=== PATIENT | female | born 1955 | race Caucasian/White ===

== ENCOUNTER 2018-04-11 16:41 | Emergency (ER) | payer OTHER, MEDICARE ==
[~2018-04-11] VITALS: Ht 167.6 cm; Wt 81.7 kg
[~2018-04-11 16:41] MED LIST: AMLO5 PO; ASPI81CH PO; DEXL60CA3 PO; ESTR1; ESTR2 PO; FAMO20 PO; LEVSOD25; Lisinopril2.5 MG; NEXIUM 24HR20 M1 PO; OMEP20ER PO; SERT25 PO
[2018-04-11 17:58] LABS: BASOPHILS ABSOLUTE AUTO 0.05 K/mm3 (0.00-0.23); BASOPHILS PERCENT AUTO 1 % (0-2); EOSINOPHILS ABSOLUTE AUTO 0.24 K/mm3 (0.00-0.68); EOSINOPHILS PERCENT AUTO 4 % (0-6); Hematocrit 40.5 % (33.0-51.0); Hemoglobin 13.3 g/dL (11.5-16.0); IMMATURE GRAN ABSOLUTE AUTO 0.02 K/mm3 (0.00-0.10); IMMATURE GRAN PERCENT AUTO 0 % (0-1); LYMPHOCYTES ABSOLUTE AUTO 2.15 K/mm3 (0.84-5.20); LYMPHOCYTES PERCENT AUTO 36 % (21-46); MONOCYTES ABSOLUTE AUTO 0.42 K/mm3 (0.16-1.47); MONOCYTES PERCENT AUTO 7 % (4-13); Mean Corpuscular HGB 29.4 pg (26.0-34.0); Mean Corpuscular HGB Conc 32.8 g/dL (31.5-36.5); Mean Corpuscular Volume 89 fL (80-100); Mean Platelet Volume 9.4 fL (9.1-12.4); NEUTROPHILS ABSOLUTE AUTO 3.08 K/mm3 (1.96-9.15); NEUTROPHILS PERCENT AUTO 52 % (41-73); Platelet Count 346 K/mm3 (150-400); RDW Coefficient Variation 13.2 % (11.7-14.2); RDW Standard Deviation 43.2 fL (35.1-46.3); Red Blood Cell Count 4.53 M/mm3 (3.80-5.20); White Blood Cell Count 5.96 K/mm3 (4.00-11.30)
[2018-04-11 18:14] LABS: Alanine Aminotransfer (ALT/SGP 33 U/L (12-78); Albumin, Blood 4.1 g/dL (3.4-5.0); Alk Phos 96 U/L (50-136); Anion Gap 10 mmol/L (6-16); Aspartate Aminotrans (AST/SGOT 26 U/L (12-37); Bilirubin, Total 0.3 mg/dL (0.1-1.0); Blood Urea Nitrogen 9 mg/dL (8-24); Bun/Creatinine Ratio 11.7 (12.0-20.0); CO2, Blood 29 mmol/L (21-32); Calcium, Blood 9.2 mg/dL (8.5-10.1); Chloride, Blood 103 mmol/L (98-108); Creatinine, Blood 0.77 mg/dL (0.40-1.00); Glomerular Filtration Rate >60 (60-); Glucose, Blood 112 mg/dL (70-99); Potassium, Blood 2.8 mmol/L (3.5-5.5); Sodium, Blood 142 mmol/L (136-145); Total Protein, Blood 8.1 g/dL (6.4-8.2); Troponin I <0.015 ng/mL (0.000-0.040)
[2018-04-11] MEDS ORDERED: POTCHL20ER PO (20:04)
== END 2018-04-11 20:22 | disposition home or self-care (01) ==
LOC: ER 16:41
PROVIDERS: Emergency Medicine
DX: S91.202A Unspecified open wound of left great toe with damage to nail, initial encounter (principal); E87.6 Hypokalemia; R07.9 Chest pain, unspecified; I10 Essential (primary) hypertension; F32.9 Major depressive disorder, single episode, unspecified; Z79.899 Other long term (current) drug therapy; Z79.82 Long term (current) use of aspirin; W22.8XXA Striking against or struck by other objects, initial encounter
CPT/HCPCS: 11730; 36415; 71046; 71260; 80053; 84484; 85025; 85379; 93005; 93010; 99284; Q9967

== ENCOUNTER 2021-04-02 12:52 | Emergency (ER) | payer OTHER, MEDICARE ==
[~2021-04-02] VITALS: Ht 167.6 cm; Wt 86.2 kg
[~2021-04-02 12:52] MED LIST changes: +POTCHL20ER PO
[2021-04-02 13:30] LABS: BASOPHILS ABSOLUTE AUTO 0.13 K/mm3 (0.00-0.23); BASOPHILS PERCENT AUTO 1 % (0-2); EOSINOPHILS ABSOLUTE AUTO 0.04 K/mm3 (0.00-0.68); EOSINOPHILS PERCENT AUTO 0 % (0-6); Hemoglobin 14.6 g/dL (11.5-16.0); IMMATURE GRAN ABSOLUTE AUTO 0.05 K/mm3 (0.00-0.10); IMMATURE GRAN PERCENT AUTO 0 % (0-1); LYMPHOCYTES ABSOLUTE AUTO 7.29 K/mm3 (0.84-5.20); LYMPHOCYTES PERCENT AUTO 65 % (21-46); MONOCYTES ABSOLUTE AUTO 0.56 K/mm3 (0.16-1.47); MONOCYTES PERCENT AUTO 5 % (4-13); Mean Corpuscular HGB 28.4 pg (26.0-34.0); Mean Corpuscular HGB Conc 32.4 g/dL (31.5-36.5); Mean Corpuscular Volume 88 fL (80-100); Mean Platelet Volume 9.5 fL (9.1-12.4); NEUTROPHILS ABSOLUTE AUTO 3.18 K/mm3 (1.96-9.15); NEUTROPHILS PERCENT AUTO 28 % (41-73); NRBC ABSOLUTE 0.02 K/mm3 (0.00-0.02); NRBC Auto 0.2 /100 WBC (0.0-0.2); Platelet Count 255 K/mm3 (150-400); RDW Coefficient Variation 14.5 % (11.7-14.2); RDW Standard Deviation 46.8 fL (35.1-46.3); Red Blood Cell Count 5.14 M/mm3 (3.80-5.20); White Blood Cell Count 11.25 K/mm3 (4.00-11.30)
[2021-04-02 13:51] LABS: Alanine Aminotransfer (ALT/SGP 61 U/L (12-78); Albumin, Blood 3.4 g/dL (3.4-5.0); Albumin/Globulin Ratio 0.8 (0.8-1.8); Alk Phos 156 U/L (50-136); Anion Gap 8 mmol/L (6-16); Aspartate Aminotrans (AST/SGOT 50 U/L (12-37); Bilirubin, Total 0.6 mg/dL (0.1-1.0); Blood Urea Nitrogen 15 mg/dL (8-24); Bun/Creatinine Ratio 16.9 (12.0-20.0); CO2, Blood 24 mmol/L (21-32); Calcium, Blood 8.9 mg/dL (8.5-10.1); Chloride, Blood 101 mmol/L (98-108); Creatinine, Blood 0.89 mg/dL (0.40-1.00); Globulin, Blood 4.1 g/dL (2.2-4.0); Glomerular Filtration Rate >60 (60-); Glucose, Blood 109 mg/dL (70-99); Potassium, Blood 4.1 mmol/L (3.5-5.5); Sodium, Blood 133 mmol/L (136-145); Total Protein, Blood 7.5 g/dL (6.4-8.2); Troponin I <0.015 ng/mL (0.000-0.040)
[2021-04-02 14:38] LABS: BASOPHILS ABSOLUTE MAN 0.11 K/mm3 (0.00-0.23); BASOPHILS PERCENT MAN 1 % (0-2); EOSINOPHILS PERCENT MAN 0 % (0-6); LYMPHOCYTES % ATYPICAL MANUAL 2 % (0-0); LYMPHOCYTES ABSOLUTE MAN 7.76 K/mm3 (0.84-5.20); LYMPHOCYTES PERCENT MAN 67 % (21-46); MONOCYTES ABSOLUTE MAN 0.22 K/mm3 (0.16-1.47); MONOCYTES PERCENT MAN 2 % (4-13); NEUTROPHILS ABSOLUTE MAN 3.15 K/mm3 (1.96-9.15); SEG NEUTROPHILS PERCENT MAN 28 % (41-73); TOTAL CELLS COUNTED 100
== END 2021-04-02 17:27 | disposition left against medical advice (07) ==
LOC: ER 12:52
PROVIDERS: Emergency Medicine
DX: Z53.21 Procedure and treatment not carried out due to patient leaving prior to being seen by health care provider (principal)
CPT/HCPCS: 36415; 80053; 84484; 85025; 93005; 93010

== ENCOUNTER 2022-02-17 09:06 | Day surgery (SDC) | payer OTHER ==
[~2022-02-17] VITALS: Ht 167.6 cm; Wt 86.4 kg
[2022-02-17] MEDS ORDERED: LOSA50 PO (10:06)
[2022-02-17] MEDS ORDERED: ELIQUIS5 M2 (10:19)
[2022-02-17] MEDS ORDERED: EUTHYROX88 MCG (10:19)
== END 2022-02-17 11:41 | disposition home or self-care (01) ==
LOC: ORSCSDS 09:06
PROVIDERS: Internal Medicine Gastroenterology
PROC: 0DB58ZX Excision of Esophagus, Via Natural or Artificial Opening Endoscopic, Diagnostic (ICD-10-PCS; principal; 2022-02-17 10:15)
PROC: 0DBL8ZX Excision of Transverse Colon, Via Natural or Artificial Opening Endoscopic, Diagnostic (ICD-10-PCS; principal; 2022-02-17 10:15)
DX: K22.70 Barrett's esophagus without dysplasia (principal); R10.11 Right upper quadrant pain; Z12.11 Encounter for screening for malignant neoplasm of colon; Z80.0 Family history of malignant neoplasm of digestive organs; D12.3 Benign neoplasm of transverse colon; K57.30 Diverticulosis of large intestine without perforation or abscess without bleeding; Z79.01 Long term (current) use of anticoagulants; Z79.899 Other long term (current) drug therapy; I10 Essential (primary) hypertension; E03.9 Hypothyroidism, unspecified; Z85.118 Personal history of other malignant neoplasm of bronchus and lung
CPT/HCPCS: 88305; J0330; J0461; J2405; J2704; J7120

== ENCOUNTER 2025-06-14 19:01 | Inpatient (IN) | payer OTHER ==
[~2025-06-14] VITALS: Ht 167.6 cm; Wt 82.2 kg
[~2025-06-14 19:01] MED LIST changes: +DOCU100 PO; +ELIQUIS5 M2 PO; +EUTHYROX88 MCG PO; +LOSA50 PO; +Norco 5-325 Ta1 EACH PO; +ONDA4 PO
[2025-06-14 20:06] LABS: Alanine Aminotransfer (ALT/SGP 18.0 U/L (12-78); Albumin, Blood 4.0 g/dL (3.4-5.0); Albumin/Globulin Ratio 1.1 (0.8-1.8); Anion Gap 9.0 mmol/L (3-11); Aspartate Aminotrans (AST/SGOT 15.0 U/L (12-37); BASOPHILS ABSOLUTE AUTO 0.03 K/mm3 (0.00-0.23); BASOPHILS PERCENT AUTO 1 % (0-2); Bilirubin, Total 0.6 mg/dL (0.1-1.0); Blood Urea Nitrogen 22.0 mg/dL (8-24); CO2, Blood 24.0 mmol/L (21-32); Calcium, Blood 9.5 mg/dL (8.5-10.1); Chloride, Blood 106.0 mmol/L (98-108); Creatinine, Blood 0.85 mg/dL (0.40-1.00); EOSINOPHILS ABSOLUTE AUTO 0.17 K/mm3 (0.00-0.68); EOSINOPHILS PERCENT AUTO 3 % (0-6); Globulin, Blood 3.6 g/dL (2.2-4.0); Glucose, Blood 100.0 mg/dL (70-99); Hematocrit 42.4 % (33.0-51.0); Hemoglobin 14.1 g/dL (11.5-16.0); IMMATURE GRAN ABSOLUTE AUTO 0.01 K/mm3 (0.00-0.10); IMMATURE GRAN PERCENT AUTO 0 % (0-1); LYMPHOCYTES ABSOLUTE AUTO 2.10 K/mm3 (0.84-5.20); LYMPHOCYTES PERCENT AUTO 37 % (21-46); MONOCYTES ABSOLUTE AUTO 0.56 K/mm3 (0.16-1.47); MONOCYTES PERCENT AUTO 10 % (4-13); Mean Corpuscular HGB Conc 33.3 g/dL (31.5-36.5); Mean Corpuscular Volume 89 fL (80-100); NEUTROPHILS ABSOLUTE AUTO 2.85 K/mm3 (1.96-9.15); NEUTROPHILS PERCENT AUTO 50 % (41-73); NRBC ABSOLUTE 0.00 K/mm3 (0.00-0.02); NRBC Auto 0.0 /100 WBC (0.0-0.2); Platelet Count 300 K/mm3 (150-400); Potassium, Blood 3.7 mmol/L (3.5-5.5); RDW Coefficient Variation 12.9 % (11.7-14.2); RDW Standard Deviation 41.9 fL (35.1-46.3); Sodium, Blood 135.0 mmol/L (136-145); Total Protein, Blood 7.6 g/dL (6.4-8.2)
[2025-06-14] MEDS ORDERED: Prochlorperazine Edisylate 10 mg Vial IV ONE (22:00)
[2025-06-14] MEDS ORDERED: DiphenhydrAMINE HCl 50 MG/ML 1ML Vial IV ONE (22:00)
[2025-06-14] MEDS ORDERED: Heparin Sodium 5000 Units/ML 1ML MDV IV ONE (22:10)
[2025-06-14 22:33] LABS: Anti-Xa UFH, PHA Monitoring 0.17 IU/mL; Prothrombin Time Results 10.9 Sec (9.7-11.5)
[2025-06-14] MEDS ORDERED: Heparin Sodium,Porcine/0.5 NS 500 ML IV SCH (22:45)
[2025-06-14] MEDS ORDERED: HydrALAZINE HCl 20 MG / ML 1ML Vial IV PRN (23:45)
[2025-06-15] VITALS (28 sets, daily range): BP systolic 132–183; BP diastolic 83–139
[2025-06-15 09:31] LABS: BASOPHILS ABSOLUTE AUTO 0.03 K/mm3 (0.00-0.23); BASOPHILS PERCENT AUTO 1 % (0-2); EOSINOPHILS ABSOLUTE AUTO 0.19 K/mm3 (0.00-0.68); EOSINOPHILS PERCENT AUTO 3 % (0-6); Hematocrit 37.7 % (33.0-51.0); Hemoglobin 12.4 g/dL (11.5-16.0); IMMATURE GRAN ABSOLUTE AUTO 0.01 K/mm3 (0.00-0.10); IMMATURE GRAN PERCENT AUTO 0 % (0-1); LYMPHOCYTES ABSOLUTE AUTO 1.79 K/mm3 (0.84-5.20); LYMPHOCYTES PERCENT AUTO 31 % (21-46); MONOCYTES ABSOLUTE AUTO 0.48 K/mm3 (0.16-1.47); MONOCYTES PERCENT AUTO 8 % (4-13); Mean Corpuscular HGB Conc 32.9 g/dL (31.5-36.5); Mean Corpuscular Volume 88 fL (80-100); NEUTROPHILS ABSOLUTE AUTO 3.21 K/mm3 (1.96-9.15); NEUTROPHILS PERCENT AUTO 56 % (41-73); NRBC ABSOLUTE 0.00 K/mm3 (0.00-0.02); NRBC Auto 0.0 /100 WBC (0.0-0.2); Platelet Count 263 K/mm3 (150-400); RDW Coefficient Variation 13.2 % (11.7-14.2); RDW Standard Deviation 42.4 fL (35.1-46.3)
[2025-06-15 09:50] LABS: Alanine Aminotransfer (ALT/SGP 18 U/L (12-78); Albumin, Blood 3.4 g/dL (3.4-5.0); Albumin/Globulin Ratio 1.1 (0.8-1.8); Anion Gap 9 mmol/L (3-11); Aspartate Aminotrans (AST/SGOT 18 U/L (12-37); Bilirubin, Total 0.5 mg/dL (0.1-1.0); Blood Urea Nitrogen 16 mg/dL (8-24); CHOL/HDL RATIO 3.6; CO2, Blood 25 mmol/L (21-32); Calcium, Blood 8.3 mg/dL (8.5-10.1); Chloride, Blood 109 mmol/L (98-108); Cholesterol 218 mg/dL (50-200); Creatinine, Blood 0.65 mg/dL (0.40-1.00); Globulin, Blood 3.1 g/dL (2.2-4.0); Glucose, Blood 90 mg/dL (70-99); HDL Cholesterol 60 mg/dL (>39); LDL/HDL RATIO 2.0; Low Density Lipoprotein Chol 122 mg/dL (0-110); Potassium, Blood 3.5 mmol/L (3.5-5.5); Sodium, Blood 139 mmol/L (136-145); Thyroid Stimulating Hormone 3.080 uIU/mL (0.360-4.800); Total Protein, Blood 6.5 g/dL (6.4-8.2); Triglycerides 180 mg/dL (30-160); Very Low Density Lipoprot Chol 36 mg/dL (6-32)
[2025-06-15] MEDS ORDERED: Dose Adjust by Pharmacy XX STA ×2 (09:57→17:29)
[2025-06-15] MEDS ORDERED: LISI20 PO (14:14)
--- NOTE | 2025-06-15 14:43 | NUR ---
CARE ASSUMPTION PT ARRIVING TO THE ICU FROM ER AND WAS ABLE TO TRANSFER SELF FROM ER [facility] TO THE ICU BED W MINIMAL ASSISTANCE. PT HAS NOTEABLE SLURRED SPEACH BUT IS ALERT AND ORIENTED COMMUNICATING APPROPRIATELY W STAFF. PT W OCCASIONAL WORD SEARCHING BUT WAS ABLE TO ANSWER ALL QUESTIONS APPROPRIATELY. 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 NO DRIFT IN LOWER EXTREMITIES. PT W MIINOR ATAXIA IN RIGHT UPPER ARM. R SIDED FACIAL DROOP NOTED. NO VISION IMPAIRMENT NOTED. [facility] STROKE SCORE OF [address] LLOYD CONTACTED FOR PT PLAN. PER DR. LLOYD IT IS OK FOR THIS RN TO DO BEDSIDE SWALLOW EVAL AND IF PT PASSES SHE CAN HAVE PO INTAKE. DR. LLOYD NOTIFIED MRI RESULTS ARE RELEASED. NO NEW ORDERS AT THIS TIME. PT'S FAMILY AT BEDSIDE. MONITOR SHOWING SR 60'S. BP W SBP 150'S. SPO2 >94% ON RA. GENERAL WAREHOUSE WORKER NOTIFIED.
--- NOTE | 2025-06-15 15:21 | NUR ---
PROVIDER CONTACT THIS RN CONTACTING DR. LLOYD AND NOTIFYING HIM THAT THE PT'S CURRENT [facility] SCORE IS 5. DR. LLOYD AWARE AND STATING TO NOTIFY THEM IF PT'S SYMPTOMS WORSEN. SECTION LEADER SCREEN PRINTING DENISE NOTIFIED.
--- NOTE | 2025-06-15 19:27 | NUR ---
DAY SHIFT SUMMARY PT HAS BEEN ALERT AND ORIENTED X4 THIS SHIFT COMMUNICATING APPROPRIATELY W STAFF. PT'S NIH SCORE REMAINED AT 5. PT PASSED BEDSIDE SWALLOW EVAL AND TOLERATED PO INTAKE WELL. SPO2 >94% ON RM AIR. BP ELEVATED W SBP IN THE 150'S. PT DENYING ANY PAIN OR NAUSEA THIS SHIFT. WILL REPORT TO ONCOMING RN
--- NOTE | 2025-06-15 20:30 | NUR ---
ASSUMPTION OF CARE: ASSUMED CARE AT START OF SHIFT (1899). PT IS DOING WELL AND RESTING IN BED. PT IS ALERT AND FOLLOWING COMMANDS. PT DENIES ANY PAIN, CP, OR SOB AT THIS TIME. LUNG SOUNDS ARE CLEAR AND EQUAL BILATERALLY, ON RA WITH SPO2 >95%. SINUS RYTHM. SBP: 130-140'S MAP >65 HR: 70-80'S. PERMISSIVE HTN, ALERT CALL DR. FOR SBP: >200. IV: LAC AND R WRIST. LINES AND CORDS PLACED OUT OF REACH. CALL LIGHT PLACED WITHIN REACH.
[2025-06-16] VITALS (35 sets, daily range): BP systolic 124–179; BP diastolic 77–104
[2025-06-16] MEDS ORDERED: Dose Adjust by Pharmacy XX STA ×2 (01:04→07:17)
--- NOTE | 2025-06-16 06:33 | NUR ---
SHIFT SUMMARY: PT IS DOING WELL AND RESTING IN BED. NO ACUTE CHANGES THROUGHOUT THE SHIFT. PT IS ALERT AND FOLLOWING COMMANDS, NO COMPLAINTS OF PAIN, CP, OR SOB. PT STATES THEY HAVE SLEEP APNEA, WHILE SLEEPING THEIR SPO2 WILL DROP INTO THE 80'S. PT WAS PLACED ON 02 @ 2LPM VIA NC WHILE SLEEPING AND THEIR SPO2 >90%. VITAL SIGN HAVE BEEN STABLE. PERIPHERAL IVS IN R HAND AND LAC. LINES AND CORDS PLACED OUT OF REACH. CALL LIGHT PLACED WITHIN REACH.
[2025-06-16 06:41] LABS: BASOPHILS ABSOLUTE AUTO 0.05 K/mm3 (0.00-0.23); BASOPHILS PERCENT AUTO 1 % (0-2); EOSINOPHILS ABSOLUTE AUTO 0.32 K/mm3 (0.00-0.68); EOSINOPHILS PERCENT AUTO 6 % (0-6); Hematocrit 41.5 % (33.0-51.0); Hemoglobin 13.6 g/dL (11.5-16.0); IMMATURE GRAN ABSOLUTE AUTO 0.01 K/mm3 (0.00-0.10); IMMATURE GRAN PERCENT AUTO 0 % (0-1); LYMPHOCYTES ABSOLUTE AUTO 2.25 K/mm3 (0.84-5.20); LYMPHOCYTES PERCENT AUTO 41 % (21-46); MONOCYTES ABSOLUTE AUTO 0.42 K/mm3 (0.16-1.47); MONOCYTES PERCENT AUTO 8 % (4-13); Mean Corpuscular HGB Conc 32.8 g/dL (31.5-36.5); Mean Corpuscular Volume 90 fL (80-100); NEUTROPHILS ABSOLUTE AUTO 2.46 K/mm3 (1.96-9.15); NEUTROPHILS PERCENT AUTO 45 % (41-73); NRBC ABSOLUTE 0.00 K/mm3 (0.00-0.02); NRBC Auto 0.0 /100 WBC (0.0-0.2); Platelet Count 249 K/mm3 (150-400); RDW Coefficient Variation 13.2 % (11.7-14.2); RDW Standard Deviation 43.2 fL (35.1-46.3)
[2025-06-16 07:06] LABS: Alanine Aminotransfer (ALT/SGP 16.0 U/L (12-78); Albumin, Blood 3.4 g/dL (3.4-5.0); Albumin/Globulin Ratio 1.1 (0.8-1.8); Anion Gap 7.0 mmol/L (3-11); Aspartate Aminotrans (AST/SGOT 13.0 U/L (12-37); Bilirubin, Total 0.4 mg/dL (0.1-1.0); Blood Urea Nitrogen 11.0 mg/dL (8-24); CO2, Blood 27.0 mmol/L (21-32); Calcium, Blood 8.7 mg/dL (8.5-10.1); Chloride, Blood 109.0 mmol/L (98-108); Creatinine, Blood 0.63 mg/dL (0.40-1.00); Globulin, Blood 3.0 g/dL (2.2-4.0); Glucose, Blood 103.0 mg/dL (70-99); Potassium, Blood 3.7 mmol/L (3.5-5.5); Sodium, Blood 139.0 mmol/L (136-145); Total Protein, Blood 6.4 g/dL (6.4-8.2)
--- NOTE | 2025-06-16 08:30 | NUR ---
SHIFT ASSESSMENT, [facility] COMPLETED THIS AM. NIH:1. SLIGHT R FACIAL DROOP MOTOR SKILLS INTACT WITH GOOD SUPERVISOR CONTACT LENS AND ROM. ABLE TO ROLL SIDE TO SIDE IN BED WITH OUT ASSISTANCE. REPORT TO PRIMARY RN CLEMENTINA.
--- NOTE | 2025-06-16 11:13 | NUR ---
ASSUMPTION OF CARE THIS AM: ASSUMED CARE OF PATIENT AROUND 10:30. PATIENT IS RESTING COMFORTABLY THIS MORNING. DENIES PAIN. HEPARIN GTT CONTINUES AT 17 U/KG/HR PER ORDERS. PATIENT ANSWERING QUESTIONS APPROPRIATELY, BUT DOES SEEM WITHDRAWN. COOPERATIVE WITH CARE AND QUESTIONING THE CONTINUED NEED TO STAY. DENIES NEEDS AT THIS TIME. VISITOR ROMARIO AT BEDSIDE.
[2025-06-16] MEDS ORDERED: EZET10 PO (17:09)
[2025-06-16] MEDS ORDERED: ATOR80 PO (17:53)
--- NOTE | 2025-06-16 19:07 | NUR ---
DISCHARGE SUMMARY: [facility] STROKE SCALE ASSESSMENT PERFORMED Q4 TODAY. PATIENT'S SCORE STABLE AT 1 TO 2. PATIENT WORKED WITH PT. NO RECOMMENDATIONS FROM PT. PATIENT STEADY ON HER FEET. PATIENT EASILY ABLE TO MAKE HER NEEDS KNOWN AND DISCUSS HER CARE WITH THIS RN. BLOOD PRESSURES STABLE WITH SBP IN THE 140S. NO TELEMETRY EVENTS DURING THE SHIFT. PATIENT EATING AND DRINKING WITHOUT DIFFICULTY. PATIENT'S FRIENDS AT BEDSIDE THROUGHOUT THE SHIFT. THEY ARE SUPPORTIVE AND ENCOURAGING OF THE PATIENT. IN THE AFTERNOON, PATIENT REPORTED THAT SHE MIGHT BE DISCHARGING TODAY. DISCUSSED WITH DR. COLÓN. PATIENT ABLE TO DISCHARGE, HOWEVER, RECOMMENDATION GIVEN TO STAY THE NIGHT SO SHE CAN ACCESS THE ATORVASTATIN IN THE AM (RELATED TO TUESDAY BEING DAY HOLIDAY). PATIENT ADAMENT THAT SHE IS GOING HOME. DISCUSSED PROS AND CONS OF GOING HOME WITHOUT ACCESS TO HER ATORVASTATIN. NOTIFIED DR. COLÓN OF THE PATIENT'S DECISION. PATIENT'S FRIEND REPORTED THAT [facility] IS OPEN TOMORROW. DISCHARGE RX FAXED TO [facility] PER REQUEST. DISCHARGE INSTRUCTIONS AND EDUCATION PROVIDED. ENCOURAGED PATIENT TO SEEK OUT NEW MASK OPTIONS FOR HER CPAP. PATIENT RECEPTIVE TO EDUCATION. PATIENT DISCHARGED IN WHEELCHAIR WITH THIS RN AND HER FRIEND. ALL QUESTIONS AND CONCERNS ADDRESSED. PATIENT STABLE AT TIME OF DISCHARGE.
== END 2025-06-16 18:49 | disposition home or self-care (01) | DRG 65 ==
LOC: ER 19:01 → ERHOLD 19:02 → ICUE 06-15 12:43
PROVIDERS: Student in an Organized Health Care Education/Training Program; ADMIT Internal Medicine
DX: I63.89 Other cerebral infarction (principal); G45.9 Transient cerebral ischemic attack, unspecified; G81.91 Hemiplegia, unspecified affecting right dominant side; I10 Essential (primary) hypertension; F41.9 Anxiety disorder, unspecified; K22.70 Barrett's esophagus without dysplasia; E03.9 Hypothyroidism, unspecified; R29.810 Facial weakness; R29.705 NIHSS score 5; Z85.118 Personal history of other malignant neoplasm of bronchus and lung; Z79.01 Long term (current) use of anticoagulants; Z79.82 Long term (current) use of aspirin; Z79.890 Hormone replacement therapy
CPT/HCPCS: 36415; 70450; 70496; 70498; 70551; 80053; 80061; 82947; 84443; 85025; 85520; 85610; 85730; 93005; 93010; 93306; 96374-59; 96375-59; 97161; 99285-25; A9270; G0378; J0780; J1200; J1644; Q9967